=== PATIENT | male | born 1955 | race Caucasian/White ===

== ENCOUNTER 2019-04-29 14:45 | Emergency (ER) | payer MEDICAID ==
[~2019-04-29] VITALS: Ht 185.4 cm; Wt 106.5 kg
--- NOTE | 2019-04-29 17:07 | NUR ---
PT AMBULATORY TO ROOM FROM LOBBY
[2019-04-29 17:14] VITALS: BP 173/104
--- NOTE | 2019-04-29 17:14 | NUR ---
TEST RESULTED, CHART UP FOR RECHECK. VSS
--- NOTE | 2019-04-29 18:37 | NUR ---
PT NOT IN ROOM TO RECIEVE D/C INSTRUCTIONS
== END 2019-04-29 18:38 | disposition home or self-care (01) ==
LOC: ED 18:32
DX: M25.511 Pain in right shoulder (principal); I49.3 Ventricular premature depolarization; I10 Essential (primary) hypertension
CPT/HCPCS: 93005; 99284

== ENCOUNTER 2020-11-11 13:33 | Emergency (ER) | payer MEDICARE, MEDICAID ==
[~2020-11-11] VITALS: Ht 185.4 cm; Wt 99.1 kg
[2020-11-11 14:02] LABS: BASOPHILS % (AUTO) 1 % (0-1); EOSINOPHILS % (AUTO) 1 % (1-7); LYMPHOCYTES % (AUTO) 14 % (22-44); MEAN CORPUSCULAR HEMOGLOBIN 30.4 pg (27.5-34.5); MEAN CORPUSCULAR HGB CONC 33.2 g/dL (33.2-36.2); MONOCYTES % (AUTO) 6 % (2-9); NEUTROPHILS % (AUTO) 78 % (42-75); PLATELET COUNT 282 x10^3/uL (130-400); RED BLOOD COUNT 4.88 x10^6/uL (4.38-5.82); RED CELL DISTRIBUTION WIDTH 13.6 % (9.4-14.8)
[2020-11-11 14:14] LABS: ALBUMIN 3.3 g/dL (3.4-5.0); ANION GAP 6 mmol/L (5-15); CALCIUM 8.6 mg/dL (8.5-10.1); CHLORIDE 110 mmol/L (98-107)
[2020-11-11 14:28] LABS: ALANINE AMINOTRANSFERASE 25 U/L (12-78); ALKALINE PHOSPHATASE 62 U/L (45-117); BILIRUBIN,TOTAL 0.3 mg/dL (0.2-1.0); CREATININE 1.05 mg/dL (0.7-1.3); TOTAL PROTEIN 6.9 g/dL (6.4-8.2)
--- NOTE | 2020-11-11 14:57 | NUR ---
client support associate note: Pt to room from lobby.
--- NOTE | 2020-11-11 14:59 | NUR ---
PT AMBULATORY TO ROOM 6 W/ C/O LEG WEAKNKESS STARTED IN JANUARY AND SLOWLY GETTING WORSE. PT STATES HE KEPT WANTING TO COME IN EARLIER BUT NEVER DID. +NUMBNESS TO FEET SINCE JANUARY. PT RESTING ON GURNEY. NADN. MONITORS APPLIED. VSS. WARM BLANKET PROVIDED. CALL LIGHT IN REACH.
--- NOTE | 2020-11-11 16:02 | NUR ---
ERP DR SZYMANSKI AT BEDSIDE FOR EVAL.
--- NOTE | 2020-11-11 16:38 | NUR ---
PT RESTING ON GURNEY. NADN. MADERA. PT CHART REVIEWED AND PLACED FOR RECHECK.
[2020-11-11 17:15] VITALS: BP 132/85
== END 2020-11-11 17:55 | disposition home or self-care (01) ==
LOC: ED 13:43
DX: G20 Parkinson's disease (principal); R51.9 Headache, unspecified; R07.89 Other chest pain; I10 Essential (primary) hypertension; F17.200 Nicotine dependence, unspecified, uncomplicated
CPT/HCPCS: 36415; 70450; 71045; 80053; 85025; 99285